=== PATIENT | male | born 1975 | race Caucasian/White ===

== ENCOUNTER 2016-03-26 23:54 | Emergency (ER) | payer BC ==
[~2016-03-26] VITALS: Ht 175.3 cm; Wt 75.0 kg
[2016-03-27 00:12] VITALS: TEMP 99.2
[2016-03-27] MEDS ORDERED: MULTIPLE VITAMI1 CAP PO (00:15)
[2016-03-27 01:43] LABS: INFLUENZA B NEGATIVE
[2016-03-27] MEDS ORDERED: NORCO 325 MG-51 TAB PO (03:31)
[2016-03-27] MEDS ORDERED: CLEOCIN HC150 MG/CAP PO (03:31)
[2016-03-27 04:09] VITALS: BP 108/68; PULSE 88
== END 2016-03-27 04:16 | disposition home or self-care (01) ==
LOC: COL.ER 23:54
PROVIDERS: Emergency Medicine
DX: J36 Peritonsillar abscess (principal)
CPT/HCPCS: J1100; J1885; J2405